=== PATIENT | male | born 1950 ===

== ENCOUNTER 2025-04-03 07:56 | Day surgery (SDC) | payer OTHER ==
[~2025-04-03] VITALS: Ht 177.8 cm; Wt 69.3 kg
[~2025-04-03 07:56] MED LIST: ASCORBIC ACID500 MG PO; Balanced Salt Epinephrine Irrigation Solution 500 mL IR SCH; FERSU300 PO; Lisinopril2.5 MG PO; MAGNESIUM OXID500 MG PO; METF500 PO; Moxifloxacin HCL 0.5 MG/0.1 ML 0.4MLSYR LEFTEYE SCH; Ondansetron 4 MG SoluTab MM PRN; PHENYLEPHRINE\\TROPICAMIDE\\TETRACAINE OPHTHALMIC DILATING SOLN LEFTEYE PRN; PRAV20 PO; Povidone-Iodine 450 DROP/30 ML Solution LEFTEYE SCH; Povidone-Iodine 450 DROP/30 ML Solution ONE; Tetracaine HCl/Pf 0.5% Opth Soln 4 ml ONE; Triamcinolone Inj Susp 40 MG / ML 1ML Vial INJ SCH; Triamcinolone Inj Susp 40 MG / ML 1ML Vial ONE; VITAMIN D3400 UNIT PO
--- NOTE | 2025-04-03 08:30 | NUR ---
04/03/25 0830 Estee Rosas PT REPORTS ANXIETY LEVEL AT 0/10 PRIOR TO ADMINISTRATION OF VALIUM 10MG PO AT 0828
--- NOTE | 2025-04-03 09:11 | NUR ---
04/03/25 0911 Ayanna Nieto VITALS AT 0905 BP: 100/62 P: 56 O2: 99% WITH 9 LITERS OF BLOW BY OXYGEN
== END 2025-04-03 09:35 | disposition home or self-care (01) ==
LOC: ORSCSDS 07:56
PROVIDERS: Ophthalmology
PROC: 08RK3JZ Replacement of Left Lens with Synthetic Substitute, Percutaneous Approach (ICD-10-PCS; principal; 2025-04-03 09:30)
DX: E11.36 Type 2 diabetes mellitus with diabetic cataract (principal); H25.812 Combined forms of age-related cataract, left eye; H52.202 Unspecified astigmatism, left eye; Z96.1 Presence of intraocular lens; E11.40 Type 2 diabetes mellitus with diabetic neuropathy, unspecified; Z79.84 Long term (current) use of oral hypoglycemic drugs; Z79.899 Other long term (current) drug therapy; Z87.891 Personal history of nicotine dependence
CPT/HCPCS: A9270; J3301; V2632